=== PATIENT | male | born 2000 | race Caucasian/White ===

== ENCOUNTER → 2021-03-30 | Outpatient (CLI) | payer OTHER ==
[2021-03-30 12:58] LABS: FREE T4 0.82 NG/DL (0.78-1.33); IMMUNOGLOBULIN A 79.3 MG/DL (70-400); THYROID STIMULATING HORMONE 1.35 uIU/ML (0.463-3.98)
== END ==
LOC: M LAB 11:34
PROVIDERS: ATTEND Internal Medicine Gastroenterology
DX: K58.1 Irritable bowel syndrome with constipation (principal)

== ENCOUNTER → 2021-04-03 | Outpatient (REF) | payer OTHER | LOC: M LAB REF 10:10 | PROVIDERS: ATTEND Internal Medicine Gastroenterology | DX: K58.1 Irritable bowel syndrome with constipation (principal) ==

== ENCOUNTER → 2021-04-13 | Outpatient (CLI) | payer OTHER | LOC: M LABSMTC 11:21 | PROVIDERS: ATTEND Anesthesiology | DX: Z01.818 Encounter for other preprocedural examination (principal) ==

== ENCOUNTER 2021-04-18 11:48 | Day surgery (SDC) | payer OTHER ==
[~2021-04-18] VITALS: Ht 177.8 cm; Wt 63.4 kg
[~2021-04-18 11:48] MED LIST: FLON27.5 NARES; MONT10TA10; NIAC500T29 PO; NS 1,000 ML IV ONE; OSCI0.37; POLY510P14; SERT25TA21; THEA200C PO
[2021-04-18] MEDS ORDERED: propofoL 200 MG/20 ML VIAL As Ordered ONE ×2 (13:30→14:43)
[2021-04-18] MEDS ORDERED: propofoL 500 MG/50 ML VIAL As Ordered ONE (14:27)
--- NOTE | 2021-04-18 14:50 | ROOR ---
Patient Name: Harlan Adkins Procedure Date: 04/18/2021 2:24 PM Date of : 2000 Age: 20 Room: [facility] Gender: Male Note Status: Finalized Procedure: Colonoscopy Indications: Suspected irritable bowel syndrome, Change in bowel habits Providers: Graham Mustafa MD Referring MD: Alonzo Valdes DO Requesting Provider: Medicines: Monitored Anesthesia Care Complications: No immediate complications. Procedure: Pre-Anesthesia Assessment: - The heart rate, respiratory rate, oxygen saturations, blood pressure, adequacy of pulmonary ventilation, and response to care were monitored throughout the procedure. The Colonoscope was introduced through the anus and advanced to 10 cm into the ileum. The colonoscopy was performed without difficulty. The patient tolerated the procedure well. The quality of the bowel preparation was good. Findings: The perianal and digital rectal examinations were normal. A 6 mm polyp was found in the ascending colon. The polyp was flat. The polyp was removed with a cold snare. Resection and retrieval were complete. Small Internal Hemorrhoids. The Colon and terminal ileum are otherwise without abnormality on direct and retroflexion views. Biopsies for histology were taken with a cold forceps for evaluation of microscopic colitis. Impression: - One 6 mm polyp in the ascending colon, removed with a cold snare. Resected and retrieved. - Small Internal Hemorrhoids. - The colon and terminal ileum are otherwise normal on direct and retroflexion views. - Biopsies were taken with a cold forceps for evaluation of microscopic colitis. - (Irritable Bowel Syndrome/IBS suspected.) Recommendation: - Telephone endoscopist for pathology results in 2 weeks. - Use fiber, for example Citrucel, Fibercon, Konsyl or Metamucil. - Continue present medications. - Lactose free diet. Procedure Code(s): --- Professional --- 97424, Colonoscopy, flexible; with removal of tumor(s), polyp(s), or other lesion(s) by snare technique 25569, 59, Colonoscopy, flexible; with biopsy, single or multiple Diagnosis Code(s): --- Professional --- R19.4, Change in bowel habit K63.5, Polyp of colon CPT copyright 2019 [employer]. All rights reserved. The codes documented in this report are preliminary and upon supervisor knitting review may be revised to meet current compliance requirements. Graham Mustafa MD Graham Mustafa MD 04/18/2021 2:50:23 PM Electronically signed by Graham Mustafa MD Number of Addenda: 0 Note Initiated On: 04/18/2021 2:24 PM Estimated Blood Loss: Estimated blood loss: none.
[2021-04-18 15:05] VITALS: BP 115/65
== END 2021-04-18 15:26 | disposition home or self-care (01) ==
LOC: M OPP 11:48
PROVIDERS: ATTEND Internal Medicine Gastroenterology
DX: K63.5 Polyp of colon (principal); K64.8 Other hemorrhoids; R19.4 Change in bowel habit; Z79.899 Other long term (current) drug therapy